=== PATIENT | male | born 1985 | race American Indian/Alaskan Native ===

== ENCOUNTER 2016-09-23 17:22 | Emergency (ER) | payer SELFPAY ==
[2016-09-23] MEDS: DELTASONE PO ONE (21:20)
[2016-09-23] MEDS: MOTRIN PO ONE (21:21)
--- NOTE | 2016-09-23 21:40 | Emergency Department Report ---
ED Lower Extremity HPI - General Chief Complaint: Extremity Injury, Lower Stated Complaint: GOUT SYMPTOMS Time Seen by Provider: 09/23/16 20:39 Source: patient Mode of arrival: Ambulatory Limitations: Physical Limitation - History of Present Illness Initial Comments: left ankle pain and swelling x 3 days pt endorsing twisting injury however pain mimic previous gout attacks same location intensity and duration, pain is exacerbated by weight bearing palpation and movement, pain intially 09/29 on monday now 07/30 which mimics usual gout exacerbation MD Complaint: ankle injury Onset/Timin -: days(s) Injury: Ankle: Right (pain and swelling ) Place: home Severity: moderate Severity scale (0 -10): 6 Improves With: nothing Worsens With: weight bearing, movement, palpation Context: other (twising / gout ) Associated Symptoms: swelling - Related Data Previous Rx's Medication Instructions Recorded Last Taken Type Guaifenesin/Codeine Phosphate 118 ml PO TID #1 bottle 07/26/14 Unknown Rx [guaiFENesin-Codeine Syrup] Indomethacin [Indocin] 25 mg PO Q8H #30 capsule 09/23/16 Unknown Rx predniSONE [Deltasone] 40 mg PO QDAY #5 tab 09/23/16 Unknown Rx Allergies Allergy/AdvReac Type Severity Reaction Status Date / Time No Known Allergies Allergy Unverified 07/26/14 15:34 ED Review of Systems ROS: Stated complaint: GOUT SYMPTOMS Other details as noted in HPI Constitutional: denies: chills, fever Eyes: denies: eye pain, eye discharge, vision change ENT: denies: ear pain, throat pain Respiratory: denies: cough, shortness of breath, wheezing Cardiovascular: denies: chest pain, palpitations Endocrine: no symptoms reported Gastrointestinal: denies: abdominal pain, nausea, diarrhea Genitourinary: denies: urgency, dysuria Musculoskeletal: joint swelling, myalgia Skin: denies: rash, lesions Neurological: denies: headache, weakness, paresthesias Psychiatric: denies: anxiety, depression Hematological/Lymphatic: denies: easy bleeding, easy bruising ED Past Medical Hx - Past Medical History Previous Medical History?: Yes Additional medical history: gout - Surgical History Past Surgical History?: No - Social History Smoking Status: Current Every Day Smoker Substance Use Type: Alcohol - Medications Home Medications: Home Medications Medication Instructions Recorded Confirmed Last Taken Type Guaifenesin/Codeine Phosphate 118 ml PO TID #1 bottle 07/26/14 Unknown Rx [guaiFENesin-Codeine Syrup] Indomethacin [Indocin] 25 mg PO Q8H #30 capsule 09/23/16 Unknown Rx predniSONE [Deltasone] 40 mg PO QDAY #5 tab 09/23/16 Unknown Rx ED Physical Exam - General Limitations: Physical Limitation General appearance: alert, in no apparent distress - Head Head exam: Present: atraumatic, normocephalic - Eye Eye exam: Present: normal appearance - ENT ENT exam: Present: mucous membranes moist - Neck Neck exam: Present: normal inspection - Respiratory Respiratory exam: Present: normal lung sounds bilaterally. Absent: respiratory distress - Cardiovascular Cardiovascular Exam: Present: regular rate, normal rhythm. Absent: systolic murmur, diastolic murmur, rubs, gallop - GI/Abdominal GI/Abdominal exam: Present: soft, normal bowel sounds - Rectal Rectal exam: Present: deferred - Extremities Exam Extremities exam: Present: tenderness, normal capillary refill, joint swelling. Absent: pedal edema, calf tenderness - Expanded Lower Extremity Exam Left Hip exam: Present: full ROM Upper Leg exam: Present: normal inspection, full ROM Knee exam: Present: normal inspection, full ROM Lower Leg exam: Present: normal inspection, full ROM Ankle exam: Present: tenderness, swelling. Absent: abrasion, laceration, ecchymosis, deformity, crepidus, dislocation, erythema, anterior draw sign Foot/Toe exam: Present: tenderness, swelling. Absent: abrasion, laceration, ecchymosis, deformity, crepidus, dislocation, erythema, amputation, puncture wound, foreign body, calcaneal tenderness, tenderness at base of 5th metatarsal , nail avulsion, subungual hematoma Neuro vascular tendon exam: Present: no vascular compromise. Absent: pulse deficit, abnormal cap refill, motor deficit, sensory deficit, tendon deficit, extremity cold to touch, pallor, abnormal 2-point discrimination, decreased fine /light touch, foot drop, peroneal nerve deficit, significant pain with passive ROM of distal joint Gait: Positive: observed and limited by pain - Back Exam Back exam: Present: normal inspection, full ROM. Absent: CVA tenderness (R), CVA tenderness (L), muscle spasm, paraspinal tenderness, vertebral tenderness - Neurological Exam Neurological exam: Present: alert, oriented X3, CN II-XII intact, normal gait, reflexes normal - Psychiatric Psychiatric exam: Present: normal affect - Skin Skin exam: Present: warm, dry, intact, normal color. Absent: rash ED Course Vital Signs 09/23/16 19:22 Temperature 98.3 F Pulse Rate 87 Respiratory 18 Rate Blood Pressure 134/103 Blood Pressure 134/103 [Right] O2 Sat by Pulse 99 Oximetry ED Lower Extremity MDM - Radiology Data Radiology results: report reviewed no fracture moderate soft tissue swelling - Medical Decision Making gout exacerbation pain improved with prednisone and ibuprofen, ppepb +2 , pt now ambulatory without assistive device plan, indomethacin, prednisone and follow up with [facility] pt vebalized agreement and understanding of same. Critical care attestation.: If time is entered above; I have spent that time in minutes in the direct care of this critically ill patient, excluding procedure time. ED Disposition Clinical Impression: Exacerbation of gout Disposition: DC-01 TO HOME OR SELFCARE Is pt being admited?: No Does the pt Need Aspirin: No Condition: Good Instructions: Acute Gouty Arthritis (ED) Additional Instructions: follow with [facility] as directec, ,take indomethacin with food Prescriptions: Indomethacin [Indocin] 25 mg PO Q8H #30 capsule predniSONE [Deltasone] 40 mg PO QDAY #5 tab Referrals: PRIMARY CARE, [Primary Care Provider] - 3-5 Days Time of Disposition: 21:47
[2016-09-23 22:49] VITALS: BP 140/91
--- NOTE | 2016-09-24 09:10 | XRay Report ---
X-RAY LEFT ANKLE 2 VIEWS: 09/23/16 17:22:00 CLINICAL: Trauma. Pain and swelling. FINDINGS: The ankle mortise is intact. No fracture or dislocation. Moderate medial and lateral soft tissue swelling. Soft tissue air or foreign body. IMPRESSION: Soft tissue injury.
== END 2016-09-23 21:53 | disposition home or self-care (01) ==
LOC: ED 17:22
DX: M10.9 Gout, unspecified (principal); F17.200 Nicotine dependence, unspecified, uncomplicated
CPT/HCPCS: 73600; 99283; J7512

== ENCOUNTER 2016-12-15 19:45 | Inpatient (IN) | payer OTHER ==
[2016-12-15] MEDS ORDERED: NACL 0.9% 1000 ML 1,000 ML ONE (20:19)
[2016-12-15] MEDS ORDERED: DIPRIVAN 10 MG/ML 0 MG/0 ML BOTTLE IV ONE (20:22)
[2016-12-15] MEDS ORDERED: MAGNESIUM SULFATE 2GM/50ML 2 GM/50 ML BAG IV ONE ×2 (20:23→20:33)
[2016-12-15] MEDS ORDERED: DIPRIVAN 10 MG/ML IV ONE ×2 (20:32→21:01)
[2016-12-15] MEDS ORDERED: ECOTRIN PO ONE (20:34)
--- NOTE | 2016-12-15 20:35 | Emergency Department Report ---
ED Chest Pain HPI - General Chief Complaint: Chest Pain Stated Complaint: CHEST PAIN Time Seen by Provider: 12/15/16 20:23 Source: patient Mode of arrival: Ambulatory Limitations: No Limitations - History of Present Illness Initial Comments: 31 y/o male with past medical history of hypertension and gout presents to ER with complaints of palpitations and chest pain 1 day. Patient was at his job doing his regular routine activity when he developed palpitations associated with chest pain. He recalls drinking lots of high caffeine energy drink daily. He has not eaten since morning. When he started experiencing chest pain he stopped working and rested but no change in symptoms. He then came to the ER for evaluation. MD Complaint: chest pain -: Gradual (just prior to arrival) Onset: during exertion (doing his routine work) Pain Location: left chest Pain Radiation: none Severity: moderate Quality: heaviness Consistency: constant Improves With: nothing Worsens With: nothing re: diaphoresis, dyspnea Other Symptoms: palpitations Treatments Prior to Arrival: aspirin (he took 2 baby aspirins this morning. He does that daily) Aspirin use within the Past 7 Days: (1) Yes - Related Data Previous Rx's Medication Instructions Recorded Last Taken Type Codeine Phosphate/Guaifenesin 118 ml PO TID #1 bottle 07/26/14 Unknown Rx [guaiFENesin-Codeine Syrup] Indomethacin [Indocin] 25 mg PO Q8H #30 capsule 09/23/16 Unknown Rx predniSONE [Deltasone] 40 mg PO QDAY #5 tab 09/23/16 Unknown Rx Allergies Allergy/AdvReac Type Severity Reaction Status Date / Time No Known Allergies Allergy Unverified 07/26/14 15:34 Heart Score - HEART Score History: Moderately suspicious EKG: Significant ST-depression Age: < 45 Risk factors: 1-2 risk factors Troponin: < normal limit HEART Score: 4 - Critical Actions Critical Actions: 4-6 pts:12-16.6% risk of adverse cardiac event. Should be admitted ED Review of Systems ROS: Stated complaint: CHEST PAIN Other details as noted in HPI Comment: All other systems reviewed and negative Constitutional: diaphoresis. denies: chills, fever Eyes: denies: eye pain, eye discharge, vision change ENT: denies: ear pain, throat pain, dental pain, hearing loss, epistaxis Respiratory: shortness of breath. denies: see HPI, cough, orthopnea, SOB with exertion, SOB at rest Cardiovascular: as per HPI, chest pain, palpitations. denies: dyspnea on exertion, edema, syncope, paroxysmal nocturnal dyspnea Endocrine: no symptoms reported Gastrointestinal: nausea. denies: abdominal pain, vomiting, diarrhea, constipation, hematemesis, melena Genitourinary: denies: urgency, dysuria, frequency, hematuria, discharge Musculoskeletal: denies: back pain, joint swelling, arthralgia Skin: denies: lesions, change in color, change in hair/nails Neurological: weakness. denies: numbness, paresthesias ED Past Medical Hx - Past Medical History Additional medical history: gout - Social History Smoking Status: Current Every Day Smoker Substance Use Type: Alcohol - Medications Home Medications: Home Medications Medication Instructions Recorded Confirmed Last Taken Type Codeine Phosphate/Guaifenesin 118 ml PO TID #1 bottle 07/26/14 Unknown Rx [guaiFENesin-Codeine Syrup] Indomethacin [Indocin] 25 mg PO Q8H #30 capsule 09/23/16 Unknown Rx predniSONE [Deltasone] 40 mg PO QDAY #5 tab 09/23/16 Unknown Rx ED Physical Exam - General Limitations: No Limitations General appearance: in distress (jgda-[id number]-nwetidnt distress), other (blood pressure 93/50, pulse rate ranged between 150s to 200s) - Head Head exam: Present: atraumatic, normocephalic, normal inspection - Eye Eye exam: Present: normal appearance, PERRL, EOMI. Absent: scleral icterus, conjunctival injection, nystagmus - ENT ENT exam: Present: normal exam, mucous membranes dry, mucous membranes moist - Neck Neck exam: Present: normal inspection, full ROM. Absent: tenderness, meningismus, lymphadenopathy - Respiratory Respiratory exam: Present: normal lung sounds bilaterally. Absent: respiratory distress, wheezes, rales, rhonchi, stridor, chest wall tenderness, accessory muscle use, decreased breath sounds - Cardiovascular Cardiovascular Exam: Present: irregular rhythm, other (ventricular tachycardia, non sustaining, with polymorphic V. tach) - GI/Abdominal GI/Abdominal exam: Present: soft, normal bowel sounds. Absent: distended, tenderness, guarding, rebound, rigid, hyperactive bowel sounds, hypoactive bowel sounds, organomegaly, mass, pulsatile mass, hernia - Rectal Rectal exam: Present: deferred - Extremities Exam Extremities exam: Present: normal inspection, full ROM, normal capillary refill. Absent: tenderness, pedal edema, joint swelling - Back Exam Back exam: Present: normal inspection, full ROM. Absent: tenderness, CVA tenderness (L), muscle spasm, paraspinal tenderness - Neurological Exam Neurological exam: Present: alert, oriented X3, CN II-XII intact, motor sensory deficit ED Course Vital Signs 12/15/16 12/15/16 12/15/16 20:00 20:05 21:30 Temperature 98 F 98.5 F 98.5 F Pulse Rate 62 189 H 86 Respiratory 26 H 22 18 Rate Blood Pressure Blood Pressure 92/51 115/56 [Left] O2 Sat by Pulse 100 99 99 Oximetry 12/15/16 12/15/16 12/15/16 21:45 21:48 22:00 Temperature 98.7 F Pulse Rate 84 85 83 Respiratory 18 16 18 Rate Blood Pressure 115/56 Blood Pressure 103/65 115/58 [Left] O2 Sat by Pulse 99 100 100 Oximetry - Reevaluation(s) Reevaluation #1: 12/15/16 21:13 Patient was given propofol 100 mg IV and then cardioverted 200 J. Synchronized cardioversion. Ther was return to sinus rhythm. - Consultations Consultation #1: 12/15/16 22:29 I discussed hospitalist, she advises I speak to chairman & chief executive officer and then call her back Consultation #2: 12/15/16 22:[address]A Mackay, chairman & chief executive officer, he agrees with my management, he advised I admit patient to hospitalist. he will consult on patient. WINIFRED score - Winifred Score Age > 65: (0) No Aspirin use within the Past 7 Days: (1) Yes 3 or more CAD Risk Factors: (0) No 2 or more Angina events in past 24 hrs: (0) No Known CAD with more than 50% Stenosis: (0) No Elevated Cardiac Markers: (0) No ST Deviation Greater than 0.5mm: (0) No WINIFRED Score: 1 ED Medical Decision Making - Lab Data Result diagrams: 12/15/16 20:35 12/15/16 20:35 - EKG Data -: EKG Interpreted by Ia - EKG Data 12/15/16 20:00 Polymorphic tachycardia with rate of 201 beats/ minutes. 20:54 repeat EKG she still shows polymorphic ventricular tachycardia rate of 208 bpm 2112 repeat EKG done after synchronized cardioversion shows return of sinus rhythm rate of 91 beats per minutes with WPW , left toward axis ST depressions in lead [address] changes in lead 3 and aVF tall T waves in V2. 12/15/16 22:27 Critical Care Time: Yes Critical care attestation.: If time is entered above; I have spent that time in minutes in the direct care of this critically ill patient, excluding procedure time. 60 mins Critical Care Time: 60 mins ED Disposition Clinical Impression: Ventricular tachycardia, Xjysv-Ubyedwjsm-Foyob syndrome Disposition: -09 OP ADMIT IP TO THIS HOSP Is pt being admited?: Yes Does the pt Need Aspirin: Yes Condition: Critical Referrals: PRIMARY CARE, [Primary Care Provider] - 3-5 Days Time of Disposition: 22:41
[2016-12-15 20:53] LABS: Basophils % (Auto) 1.1 % (0.0-1.8); Hematocrit 41.7 % (35.5-45.6); Mean Corpuscular HGB Conc 34 % (32-34); Mean Corpuscular Hemoglobin 30 pg (28-32); Mean Corpuscular Volume 88 fl (84-94); Platelet Count 252 K/mm3 (140-440); Red Blood Count 4.74 M/mm3 (3.65-5.03); Red Cell Distribution Width 13.3 % (13.2-15.2); White Blood Count 10.1 K/mm3 (4.5-11.0)
[2016-12-15] MEDS ORDERED: CALCIUM GLUCONATE 1,000 MG in NACL 0.9% 100 ML IV ONE (20:53)
[2016-12-15] MEDS ORDERED: CARDIZEM IV ONE (20:54)
[2016-12-15] MEDS ORDERED: HEPARIN 10,000 UNITS/10 ML IV ONE (20:55)
[2016-12-15 21:09] LABS: Anion Gap 20 mmol/L; BUN/Creatinine Ratio 18; Blood Urea Nitrogen 21 mg/dL (9-20); Calcium 8.7 mg/dL (8.4-10.2); Carbon Dioxide 22 mmol/L (22-30); Chloride 105.6 mmol/L (98-107); Glucose 74 mg/dL (75-100); Potassium 3.7 mmol/L (3.6-5.0); Sodium 144 mmol/L (137-145)
[2016-12-15] MEDS: CORDARONE 900 MG in D5W 482 ML IV SCH (22:26)
[2016-12-15] MEDS ORDERED: MILK OF MAGNESIA PO PRN (22:51)
[2016-12-15] MEDS ORDERED: DULCOLAX PR PRN (22:51)
[2016-12-15] MEDS ORDERED: PERCOCET 5/325 PO PRN (22:51)
[2016-12-15] MEDS ORDERED: ZOFRAN IV PRN (22:51)
[2016-12-15] MEDS ORDERED: TYLENOL PO PRN (22:51)
--- NOTE | 2016-12-15 22:55 | History and Physical Report ---
History of Present Illness Date of examination: 12/15/16 History of present illness: 31-year-old man with no medical problems came to emergency room because of palpitation for 1 hour, he also experienced diaphoresis and felt dizzy. He was found to be in V. tach and was shocked once at 200 J, subsequent EKG showed WPW. He was started on amiodarone drip and a heparin drip. Patient drank 6 energy drinks a week. He had an episode of palpitation 2 years ago, however he went to urgent care today after his symptoms, they did not find anything acute Review Of Systems: Constitutional: no weight loss Ears, eyes, nose, mouth and throat: no nasal congestion, no nasal discharge, no sinus pressure, blurry vision, diplopia Neck: No neck pain or rigidity. Cardiovascular: no chest pain, orthopnea, palpitations Respiratory: No shortness of breath, cough Gastrointestinal: no abdominal pain, hematochezia Genitourinary : no dysuria, frequency , hematuria Musculoskeletal: no muscle ache Integumentary: no rash, no pruritis Neurological: no parathesias, focal weakness Endocrine: no cold or heat intolerance, no polyuria or polydipsia Hematologic/Lymphatic: no easy bruising, no easy bleeding, no gland swelling Allergic/Immunologic: no urticaria, no angioedema. Medications and Allergies Allergies Allergy/AdvReac Type Severity Reaction Status Date / Time No Known Allergies Allergy Unverified 07/26/14 15:34 Home Medications Medication Instructions Recorded Confirmed Last Taken Type Codeine Phosphate/Guaifenesin 118 ml PO TID #1 bottle 07/26/14 Unknown Rx [guaiFENesin-Codeine Syrup] Indomethacin [Indocin] 25 mg PO Q8H #30 capsule 09/23/16 Unknown Rx predniSONE [Deltasone] 40 mg PO QDAY #5 tab 09/23/16 Unknown Rx Active Meds: Active Medications Amiodarone HCl 900 mg/ (Dextrose) 500 mls @ 33.33 mls/hr IV DIRECT DEVON; 1 MG /MIN PRN Reason: Protocol Last Admin: 12/15/16 22:26 Dose: 1 mg/min, 33.33 mls/hr Heparin Sodium/Sodium Chloride (Heparin/ 0.45% Nacl-25,000 Unit/500 Ml) 25,000 unit in 500 mls @ 20 mls/hr IV TITRATE DEVON; 1,000 UNITS/HR PRN Reason: Protocol Exam - Physical Exam Narrative exam: Gen. appearance: Patient lying in bed in no acute distress HEENT: Normocephalic/atraumatic, pupils equal round reactive to light, extra alkaline movement intact, no scleral icterus, no JVD or thyromegaly or nodule, neck is supple, mucous membrane moist, no erythema or exudate Heart: S1-S2, regular rate and rhythm Lungs: Clear to auscultation bilateral breathing comfortable Abdomen: Positive bowel sounds, nontender, nondistended, no organomegaly Extremities: No edema, cyanosis, clubbing Neuro:: Oriented 3 , cranial nerves II-12 intact, speech, motor intact Skin: No rash, nodules, warm dry - Constitutional Vitals: Temp Pulse Resp BP Pulse Ox 98.7 F 83 18 115/58 100 12/15/16 21:45 12/15/16 22:00 12/15/16 22:00 12/15/16 22:00 12/15/16 22:00 Results - Labs CBC & Chem 7: 12/16/16 04:42 12/16/16 04:42 Labs: Abnormal lab results 12/15/16 12/15/16 Range/Units 20:35 20:35 [place] % (Auto) 11.8 H (0.0-7.3) % [place] # 1.2 H (0.0-0.8) K/mm3 BUN 21 H (9-20) mg/dL Glucose 74 L (75-100) mg/dL Assessment and Plan Assessment New onset WPW Vtac, s/p shock Plan Admit to medicine Continue amiodarone drip, heparin drip Check cardiac enzymes, echo, x-ray, consult cardiology DVT prophylaxis initiated
[2016-12-15] MEDS ORDERED: HEPARIN/ 0.45% NACL-25,000 UNIT/500 ML 25,000 UNIT/500 ML BAG IV SCH (23:00)
[2016-12-15 23:23] LABS: INR 1.01 (0.87-1.13)
[2016-12-15 23:24] LABS: Partial Thromboplastin Time 30.7 Sec. (24.2-36.6)
[2016-12-15 23:30] LABS: Creatine Kinase MB 10.2 ng/mL (0.0-4.0)
[2016-12-16 05:17] LABS: Basophils % (Auto) 0.4 % (0.0-1.8); Eosinophils % (Auto) 3.5 % (0.0-4.3); Hematocrit 40.4 % (35.5-45.6); Hemoglobin 13.6 gm/dl (11.8-15.2); Mean Corpuscular HGB Conc 34 % (32-34); Mean Corpuscular Hemoglobin 30 pg (28-32); Mean Corpuscular Volume 88 fl (84-94); Platelet Count 247 K/mm3 (140-440); Red Blood Count 4.58 M/mm3 (3.65-5.03); Red Cell Distribution Width 13.3 % (13.2-15.2); White Blood Count 9.8 K/mm3 (4.5-11.0)
[2016-12-16] MEDS: CORDARONE 900 MG in D5W 482 ML IV SCH (05:19)
[2016-12-16 05:27] LABS: Anion Gap 15 mmol/L; BUN/Creatinine Ratio 22; Blood Urea Nitrogen 20 mg/dL (9-20); Calcium 8.1 mg/dL (8.4-10.2); Carbon Dioxide 24 mmol/L (22-30); Chloride 107.5 mmol/L (98-107); Glucose 99 mg/dL (75-100); Potassium 3.9 mmol/L (3.6-5.0); Sodium 143 mmol/L (137-145)
[2016-12-16 05:28] LABS: Creatine Kinase MB 12.7 ng/mL (0.0-4.0)
[2016-12-16 09:30] LABS: Urine Drugs of Abuse Note Disclamer
--- NOTE | 2016-12-16 10:23 | XRay Report ---
PORTABLE CHEST INDICATION: Palpitations. COMPARISON: 07/26/2014 FINDINGS: Portable, frontal chest radiographs, 2 images again suggest mild cardiomegaly and slightly prominent bronchovascular markings centrally. Otherwise clear lungs without pleural effusions or CHF. Intact bones. Few extrinsic artifacts. CONCLUSION: Mild cardiomegaly, as described. Thank you for the opportunity to participate in this patient's care.
--- NOTE | 2016-12-16 10:47 | Consultation ---
History of Present Illness Consult date: 12/16/16 Consult reason: tachycardia History of present illness: 31 year old male admitted with palpitations and found to have evidence of afib with pre-excitation. He was shocked with a 200 J shock with return to SR. Patient reports having a similar episode in the past but did not seek medical care at that time. He has no chronic medical problems and takes no meds. Past History Past Medical History: No medical history Past Surgical History: No surgical history Social history: no significant social history Family history: no significant family history Medications and Allergies Allergies Allergy/AdvReac Type Severity Reaction Status Date / Time No Known Allergies Allergy Unverified 07/26/14 15:34 Home Medications Medication Instructions Recorded Confirmed Last Taken Type Aspirin [Adult Low Dose Aspirin EC] 81 mg PO DAILY PRN 12/16/16 12/16/16 10:00 History Indomethacin [Indocin] 25 mg PO Q8H PRN 12/16/16 12/16/16 Unknown History predniSONE [Deltasone] 40 mg PO QDAY PRN 12/16/16 12/16/16 Unknown History Active Meds: Active Medications Acetaminophen (Tylenol) 650 mg PO Q4H PRN PRN Reason: Pain MILD(1-3)/Fever >100.5/MORRIS Bisacodyl (Dulcolax) 10 mg [place] QDAY PRN PRN Reason: Constipation unrelieved by MOM Amiodarone HCl 900 mg/ (Dextrose) 500 mls @ 33.33 mls/hr IV DIRECT DEVON; 1 MG /MIN PRN Reason: Protocol Last Titration: 12/16/16 05:20 Dose: 0.5 mg/min, 16.66 mls/hr Heparin Sodium/Sodium Chloride (Heparin/ 0.45% Nacl-25,000 Unit/500 Ml) 25,000 unit in 500 mls @ 20 mls/hr IV TITRATE DEVON; 1,000 UNITS/HR PRN Reason: Protocol Last Admin: 12/16/16 00:45 Dose: 1,000 units/hr, 20 mls/hr Magnesium Hydroxide (Milk Of Magnesia) 30 ml PO Q4H PRN PRN Reason: Constipation Ondansetron HCl (Zofran) 4 mg IV Q8H PRN PRN Reason: N/V unrelieved by Reglan Oxycodone/Acetaminophen (Percocet 5/325) 1 tab PO Q6H PRN PRN Reason: Pain, Moderate (4-6) Review of Systems All systems: negative Physical Examination Vital Signs Temp Pulse Resp Pulse Ox 98 F 62 26 H 100 12/15/16 20:00 12/15/16 20:00 12/15/16 20:00 12/15/16 20:00 General appearance: no acute distress HEENT: Positive: PERRL Neck: Positive: neck supple Cardiac: Positive: Reg Rate and Rhythm Lungs: Positive: Normal Exam Abdomen: Positive: Soft Extremities: Present: normal Results 12/16/16 04:42 12/16/16 04:42 Cardiac Enzymes 12/16/16 Range/Units 04:42 CK-MB (CK-2) 12.7 H (0.0-4.0) ng/mL Coagulation 12/15/16 Range/Units 23:00 PT 13.8 (12.2-14.9) Sec. INR 1.01 (0.87-1.13) APTT 30.7 (24.2-36.6) Sec. CBC 12/16/16 Range/Units 04:42 WBC 9.8 (4.5-11.0) K/mm3 RBC 4.58 (3.65-5.03) M/mm3 Hgb 13.6 (11.8-15.2) gm/dl Hct 40.4 (35.5-45.6) % Plt Count 247 (140-440) K/mm3 Lymph # 2.7 (1.2-5.4) K/mm3 [place] # 1.2 H (0.0-0.8) K/mm3 Eos # 0.3 (0.0-0.4) K/mm3 Baso # 0.0 (0.0-0.1) K/mm3 Comprehensive Metabolic Panel 12/16/16 Range/Units 04:42 Sodium 143 (137-145) mmol/L Potassium 3.9 (3.6-5.0) mmol/L Chloride 107.5 H (98-107) mmol/L Carbon Dioxide 24 (22-30) mmol/L BUN 20 (9-20) mg/dL Creatinine 0.9 (0.8-1.5) mg/dL Glucose 99 (75-100) mg/dL Calcium 8.1 L (8.4-10.2) mg/dL - EKG Interpretation EKG: sinus rhythm Assessment and Plan Afib with pre-excitation s/p DCCV Obesity Non-specific troponin Recommendations: Start po amiodarone. Amiodarone will be continued until patient gets an ablation as outpatient. Amiodarone was chosen due to concern of failure to follow-up by patient. Suspect non-compliance Discontinue IV heparin Echocardiogram
[2016-12-16] MEDS: CORDARONE PO SCH ×2 (13:00→22:15)
--- NOTE | 2016-12-16 23:15 | Progress Note ---
Assessment and Plan Assessment and plan: ssessment New onset WPW Vtac, s/p shock Plan Admit to medicine Continue amiodarone drip, heparin drip Check cardiac enzymes, echo, x-ray, consult cardiology DVT prophylaxis initiated 31-year-old man with no medical problems came to emergency room because of palpitation for 1 hour, he also experienced diaphoresis and felt dizzy. He was found to be in V. tach and was shocked once at 200 J, subsequent EKG showed WPW. He was started on amiodarone drip and a heparin drip. Patient drank 6 energy drinks a week. He had an episode of palpitation 2 years ago, however he went to urgent care today after his symptoms, they did not find anything acute New onset WPW Vtac, s/p shock History Interval history: patient seen and examined, in no acute distress.except for wanting to eat and abdominal pain. We nil get to aconsiderable good job for us this way. Hospitalist Physical - Constitutional Vitals: Temp Pulse Resp BP Pulse Ox 98.1 F 88 18 149/88 99 12/16/16 19:36 12/16/16 23:11 12/16/16 22:27 12/16/16 19:36 12/16/16 22:27 General appearance: Present: no acute distress, well-nourished, obese - EENT Eyes: Present: PERRL, EOM intact ENT: hearing intact, clear oral mucosa - Neck Neck: Present: supple, normal ROM - Respiratory Respiratory effort: normal Respiratory: bilateral: CTA - Cardiovascular Rhythm: regular - Extremities Extremities: no ischemia Results - Labs CBC & Chem 7: 12/16/16 04:42 12/16/16 04:42 Labs: Laboratory Last Values WBC 9.8 K/mm3 (4.5-11.0) 12/16/16 04:42 RBC 4.58 M/mm3 (3.65-5.03) 12/16/16 04:42 Hgb 13.6 gm/dl (11.8-15.2) 12/16/16 04:42 Hct 40.4 % (35.5-45.6) 12/16/16 04:42 MCV 88 fl (84-94) 12/16/16 04:42 MCH 30 pg (28-32) 12/16/16 04:42 MCHC 34 % (32-34) 12/16/16 04:42 RDW 13.3 % (13.2-15.2) 12/16/16 04:42 Plt Count 247 K/mm3 (140-440) 12/16/16 04:42 Lymph % (Auto) 27.3 % (13.4-35.0) 12/16/16 04:42 [place] % (Auto) 12.0 % (0.0-7.3) H 12/16/16 04:42 Eos % (Auto) 3.5 % (0.0-4.3) 12/16/16 04:42 Baso % (Auto) 0.4 % (0.0-1.8) 12/16/16 04:42 Lymph # 2.7 K/mm3 (1.2-5.4) 12/16/16 04:42 [place] # 1.2 K/mm3 (0.0-0.8) H 12/16/16 04:42 Eos # 0.3 K/mm3 (0.0-0.4) 12/16/16 04:42 Baso # 0.0 K/mm3 (0.0-0.1) 12/16/16 04:42 Seg Neutrophils % 56.8 % (40.0-70.0) 12/16/16 04:42 Seg Neutrophils # 5.6 K/mm3 (1.8-7.7) 12/16/16 04:42 PT 13.8 Sec. (12.2-14.9) 12/15/16 23:00 INR 1.01 (0.87-1.13) 12/15/16 23:00 APTT 30.7 Sec. (24.2-36.6) 12/15/16 23:00 Heparin Anti-Xa Level < 0.10 U.I./ml (0.3-0.7) L 12/16/16 10: Sodium 143 mmol/L (137-145) 12/16/16 04:42 Potassium 3.9 mmol/L (3.6-5.0) 12/16/16 04:42 Chloride 107.5 mmol/L (98-107) H 12/16/16 04:42 Carbon Dioxide 24 mmol/L (22-30) 12/16/16 04:42 Anion Gap 15 mmol/L 12/16/16 04:42 BUN 20 mg/dL (9-20) 12/16/16 04:42 Creatinine 0.9 mg/dL (0.8-1.5) 12/16/16 04:42 Estimated GFR > 60 ml/min 12/16/16 04:42 BUN/Creatinine Ratio 22 % 12/16/16 04:42 Glucose 99 mg/dL (75-100) 12/16/16 04:42 Calcium 8.1 mg/dL (8.4-10.2) L 12/16/16 04:42 Magnesium 1.80 mg/dL (1.7-2.3) 12/15/16 20:40 Total Creatine Kinase 466 units/L (55-170) H 12/16/16 04:42 CK-MB (CK-2) 12.7 ng/mL (0.0-4.0) H 12/16/16 04:42 CK-MB (CK-2) Rel Index 2.7 (0-4) 12/16/16 04:42 Troponin T 0.066 ng/mL (0.00-0.029) H D 12/16/16 04:42 Triglycerides 71 mg/dL (2-149) 12/15/16 22:51 Cholesterol 144 mg/dL (50-199) 12/15/16 22:51 LDL Cholesterol Direct 94 mg/dL (50-130) 12/15/16 22:51 HDL Cholesterol 36 mg/dL (40-59) L 12/15/16 22:51 Cholesterol/HDL Ratio 4.00 % 12/15/16 22:51 Urine Opiates Screen Presumptive negative 12/16/16 09:21 Urine Methadone Screen Presumptive negative 12/16/16 09:21 Ur Barbiturates Screen Presumptive negative 12/16/16 09:21 Ur Phencyclidine Scrn Presumptive negative 12/16/16 09:21 Ur Amphetamines Screen Presumptive negative 12/16/16 09:21 U Benzodiazepines Scrn Presumptive negative 12/16/16 09:21 Urine Cocaine Screen Presumptive negative 12/16/16 09:21 U Marijuana (THC) Screen Presumptive negative 12/16/16 09:21 Drugs of Abuse Note Disclamer 12/16/16 09:21
--- NOTE | 2016-12-16 23:22 | Progress Note ---
Assessment and Plan Assessment and plan: 31-year-old man with no medical problems came to emergency room because of palpitation for 1 hour, he also experienced diaphoresis and felt dizzy. He was found to be in V. tach and was shocked once at 200 J, subsequent EKG showed WPW. He was started on amiodarone drip and a heparin drip. Patient drank 6 energy drinks a week. He had an episode of palpitation 2 years ago, however he went to urgent care today after his symptoms, they did not find anything acute Afib with RVR Morbid obesity BMI OF 43.5 vTAC With shock Near syncope Plan Supportive care weight loss managment outpatient Ok with PO amiodarone and patient can be planned for amiodarone. DVT/GI porphy History Interval history: patient seen and examined, in no acute distress.except for wanting to eat and abdominal pain. We nil get to aconsiderable good job for us this way. Hospitalist Physical - Constitutional Vitals: Temp Pulse Resp BP Pulse Ox 98.1 F 88 18 149/88 99 12/16/16 19:36 12/16/16 23:11 12/16/16 22:27 12/16/16 19:36 12/16/16 22:27 General appearance: Present: no acute distress, well-nourished, obese - EENT Eyes: Present: PERRL, EOM intact ENT: hearing intact, clear oral mucosa - Neck Neck: Present: supple, normal ROM - Respiratory Respiratory effort: normal Respiratory: bilateral: CTA - Cardiovascular Rhythm: regular Heart Sounds: Present: S1 & S2. Absent: systolic murmur - Extremities Extremities: no ischemia, pulses intact, No edema Peripheral Pulses: within normal limits - Abdominal General gastrointestinal: soft, non-tender, non-distended, normal bowel sounds - Integumentary Integumentary: Present: clear, warm, dry - Psychiatric Psychiatric: appropriate mood/affect, intact judgment & insight, cooperative - Neurologic Neurologic: CNII-XII intact, moves all extremities - Allied Health Allied health notes reviewed: nursing Results - Labs CBC & Chem 7: 12/16/16 04:42 12/16/16 04:42 Labs: Laboratory Last Values WBC 9.8 K/mm3 (4.5-11.0) 12/16/16 04:42 RBC 4.58 M/mm3 (3.65-5.03) 12/16/16 04:42 Hgb 13.6 gm/dl (11.8-15.2) 12/16/16 04:42 Hct 40.4 % (35.5-45.6) 12/16/16 04:42 MCV 88 fl (84-94) 12/16/16 04:42 MCH 30 pg (28-32) 12/16/16 04:42 MCHC 34 % (32-34) 12/16/16 04:42 RDW 13.3 % (13.2-15.2) 12/16/16 04:42 Plt Count 247 K/mm3 (140-440) 12/16/16 04:42 Lymph % (Auto) 27.3 % (13.4-35.0) 12/16/16 04:42 [place] % (Auto) 12.0 % (0.0-7.3) H 12/16/16 04:42 Eos % (Auto) 3.5 % (0.0-4.3) 12/16/16 04:42 Baso % (Auto) 0.4 % (0.0-1.8) 12/16/16 04:42 Lymph # 2.7 K/mm3 (1.2-5.4) 12/16/16 04:42 [place] # 1.2 K/mm3 (0.0-0.8) H 12/16/16 04:42 Eos # 0.3 K/mm3 (0.0-0.4) 12/16/16 04:42 Baso # 0.0 K/mm3 (0.0-0.1) 12/16/16 04:42 Seg Neutrophils % 56.8 % (40.0-70.0) 12/16/16 04:42 Seg Neutrophils # 5.6 K/mm3 (1.8-7.7) 12/16/16 04:42 PT 13.8 Sec. (12.2-14.9) 12/15/16 23:00 INR 1.01 (0.87-1.13) 12/15/16 23:00 APTT 30.7 Sec. (24.2-36.6) 12/15/16 23:00 Heparin Anti-Xa Level < 0.10 U.I./ml (0.3-0.7) L 12/16/16 10: Sodium 143 mmol/L (137-145) 12/16/16 04:42 Potassium 3.9 mmol/L (3.6-5.0) 12/16/16 04:42 Chloride 107.5 mmol/L (98-107) H 12/16/16 04:42 Carbon Dioxide 24 mmol/L (22-30) 12/16/16 04:42 Anion Gap 15 mmol/L 12/16/16 04:42 BUN 20 mg/dL (9-20) 12/16/16 04:42 Creatinine 0.9 mg/dL (0.8-1.5) 12/16/16 04:42 Estimated GFR > 60 ml/min 12/16/16 04:42 BUN/Creatinine Ratio 22 % 12/16/16 04:42 Glucose 99 mg/dL (75-100) 12/16/16 04:42 Calcium 8.1 mg/dL (8.4-10.2) L 12/16/16 04:42 Magnesium 1.80 mg/dL (1.7-2.3) 12/15/16 20:40 Total Creatine Kinase 466 units/L (55-170) H 12/16/16 04:42 CK-MB (CK-2) 12.7 ng/mL (0.0-4.0) H 12/16/16 04:42 CK-MB (CK-2) Rel Index 2.7 (0-4) 12/16/16 04:42 Troponin T 0.066 ng/mL (0.00-0.029) H D 12/16/16 04:42 Triglycerides 71 mg/dL (2-149) 12/15/16 22:51 Cholesterol 144 mg/dL (50-199) 12/15/16 22:51 LDL Cholesterol Direct 94 mg/dL (50-130) 12/15/16 22:51 HDL Cholesterol 36 mg/dL (40-59) L 12/15/16 22:51 Cholesterol/HDL Ratio 4.00 % 12/15/16 22:51 Urine Opiates Screen Presumptive negative 12/16/16 09:21 Urine Methadone Screen Presumptive negative 12/16/16 09:21 Ur Barbiturates Screen Presumptive negative 12/16/16 09:21 Ur Phencyclidine Scrn Presumptive negative 12/16/16 09:21 Ur Amphetamines Screen Presumptive negative 12/16/16 09:21 U Benzodiazepines Scrn Presumptive negative 12/16/16 09:21 Urine Cocaine Screen Presumptive negative 12/16/16 09:21 U Marijuana (THC) Screen Presumptive negative 12/16/16 09:21 Drugs of Abuse Note Disclamer 12/16/16 09:21
[2016-12-17 05:44] LABS: Hematocrit 40.5 % (35.5-45.6); Hemoglobin 12.9 gm/dl (11.8-15.2)
--- NOTE | 2016-12-17 09:24 | Progress Note ---
Assessment and Plan Afib with pre-excitation s/p DCCV Obesity Non-specific troponin Recommendations: Continue po amiodarone 400 mg po bid x 10 days then 200 mg po daily Start asa 325 mg po daily (CHADSVASC = 0 - no need for anticoagulation) Patient has a follow-up appointment with Dr Mackay (EP) on Monday12/20/2016 at 9:30 am in [place] office May go home cardiac flores Subjective Date of service: 12/17/16 Principal diagnosis: WPW Interval history: Patient is doing well No complaints No further arrhythmias on tele Objective Vital Signs Temp Pulse Resp BP BP Pulse Ox 12/17/16 09:12 97.7 F 76 149/88 12/17/16 08:39 74 98 12/17/16 07:59 73 12/17/16 03:38 98.2 F 74 18 130/55 98 12/17/16 00:02 98.1 F 67 18 149/87 98 12/16/16 23:11 88 12/16/16 22:27 87 18 99 12/16/16 19:36 98.1 F 84 18 149/88 99 12/16/16 15:44 98.0 F 83 18 152/89 100 12/16/16 14:12 99 12/16/16 13:59 98.0 F 76 20 152/89 99 12/16/16 13:30 73 26 H 138/91 99 12/16/16 13:21 89 13 130/75 99 12/16/16 13:11 87 17 130/75 100 12/16/16 13:01 63 19 137/72 99 12/16/16 12:51 66 16 130/75 100 12/16/16 12:41 55 L 19 130/75 100 12/16/16 12:31 58 L 19 130/75 100 12/16/16 12:21 70 18 138/93 99 12/16/16 12:11 66 19 138/93 99 12/16/16 12:00 57 L 15 138/93 99 12/16/16 11:57 97.9 F 63 18 122/68 100 12/16/16 11:51 67 18 122/68 100 12/16/16 11:41 58 L 22 122/68 100 12/16/16 11:31 83 19 122/68 100 12/16/16 11:21 68 18 145/79 98 10/27/17 11:11 68 22 145/79 98 12/16/16 11:01 62 15 145/79 99 12/16/16 10:51 67 24 135/76 99 12/16/16 10:41 78 12 135/76 100 12/16/16 10:31 68 13 135/76 99 12/16/16 10:21 73 15 131/77 99 12/16/16 10:11 71 16 131/77 100 12/16/16 10:01 65 19 131/77 100 12/16/16 09:51 64 20 134/78 100 12/16/16 09:41 80 12 134/78 100 12/16/16 09:31 66 23 134/78 100 - Physical Examination HEENT: Positive: PERRL Neck: Positive: neck supple Cardiac: Positive: Reg Rate and Rhythm Lungs: Positive: Normal Exam Abdomen: Positive: Soft Extremities: Present: normal - Labs and Meds CBC 12/17/16 Range/Units 05:06 Hgb 12.9 (11.8-15.2) gm/dl Hct 40.5 (35.5-45.6) % Plt Count 235 (140-440) K/mm3
[2016-12-17] MEDS: CORDARONE PO SCH (09:53)
[2016-12-17] MEDS ORDERED: ASPIRIN PO SCH (10:00)
--- NOTE | 2016-12-17 11:21 | Discharge Summary ---
Providers - Providers Date of Admission: 12/15/16 22:51 Date of discharge: 12/17/16 Attending physician: BELTRAN FLORES Primary care physician: MAIL CENSOR Hospitalization Condition: Stable Hospital course: Patient is a 31-year-old man with no medical problems who present to ED with palpitation and dizziness. He was found to be in V. tach and was shocked once at 200 J, subsequent EKG showed WPW. He was started on amiodarone drip and a heparin drip. He drinks 6 energy sodas a week. Discharge diagnoses: -Afib with RVR pre-excitation s/p DCCV -Morbid obesity BMI OF 43.5 -vTAC With shock -Near syncope -WPW -non-specific troponin elevation per Cardiology Inventory Assistant, Dr. Guthrie's Recommendations (whom I spoke with): Continue po amiodarone 400 mg po bid x 10 days then 200 mg po daily Start asa 325 mg po daily (CHADSVASC = 0 - no need for anticoagulation) Patient has a follow-up appointment with Dr Mackay () on Monday12/20/2016 at 9:30 am in [place] office May go home cardiac flores Disposition: DC-01 TO HOME OR SELFCARE Time spent for discharge: 32 min Core Measure Documentation - Palliative Care Palliative Care/ Comfort Measures: Not Applicable - Core Measures Any of the following diagnoses?: none - VTE Discharge Requirements Deep Vein Thrombosis/Pulmonary Embolism Present on Admission: No Has pt received <5 days of overlap therapy or INR<2.0: No Anticoagulant overlap therapy prescribed at discharge: No Contraindication No Overlap Therapy order at DC: Not Indicated Exam - Physical Exam Narrative exam: GEN: WDWN, NAD, AWAKE, ALERT, ORIENTATED 3 HEENT: NCAT, EOMI, PERRL, OP Clear NECK: supple, no adenopathy, no thyromegaly, no JVD CVS/HEART: RRR, NORMAL S1S2, NO JVD, pulses present bilaterally CHEST/LUNGS: CTA B, Symmetrical chest expansion, good air entry bilaterally GI/Abdomen: soft, NTND, good bowel sounds, no guarding or rebound /Bladder: no suprapubic tenderness, no CVA or paraspinal tenderness EXT/Skin: no c/c/e, no obvious rash MSK: FROM x 4 Neuro: CN 2-12 grossly intact, no new focal deficits Psych: calm - Constitutional Vitals: Temp Pulse Resp BP Pulse Ox 97.7 F 76 18 149/88 98 12/17/16 09:12 12/17/16 09:12 12/17/16 03:38 12/17/16 09:12 12/17/16 08:39 Plan Activity: no driving until cleared by PCP (no driving until cleared by cardiology), other (no strenous activity until cleared by cardiology) Diet: low salt Special Instructions: smoking cessation Additional Instructions: If you do not have PCP, call [facility] at [phone] for the first available appointment Follow up with: PRIMARY MD SVETLANA [Primary Care Provider] - 3-5 Days JEANETTE MACKAY MD [Staff Physician] - 12/20/16 9:30 am Prescriptions: Amiodarone [Cordarone 200 MG TAB] 400 mg PO BID #30 day Aspirin [Aspirin TAB] 325 mg PO QDAY #30 tablet Nicotine [Habitrol] 14 mg TD DAILY #15 day
[2016-12-17 12:55] VITALS: BP 135/86
== END 2016-12-17 14:12 | disposition home or self-care (01) | DRG 309 ==
LOC: ED 19:45 → CC1 22:51 → 4A 12-16 12:58
PROVIDERS: ADMIT Internal Medicine; ATTEND Internal Medicine
PROC: 5A09357 Assistance with Respiratory Ventilation, Less than 24 Consecutive Hours, Continuous Positive Airway Pressure (ICD-10-PCS; principal; 2016-12-15)
DX: I48.91 Unspecified atrial fibrillation (principal); Z68.41 Body mass index [BMI] 40.0-44.9, adult; I45.6 Pre-excitation syndrome; I47.2 Ventricular tachycardia; E66.01 Morbid (severe) obesity due to excess calories; Z88.5 Allergy status to narcotic agent; Z79.899 Other long term (current) drug therapy
CPT/HCPCS: 36415; 71010; 80048; 80061; 80307; 82550; 82553; 83735; 84484; 85014; 85018; 85025; 85049; 85520; 85610; 85730; 93005; 93010; 93306; 94660; 96365; 96366; 96367; 96375; J0282; J1644; J2704; J3475; J7030; J7060

== ENCOUNTER 2018-04-20 17:45 | Emergency (ER) | payer OTHER ==
--- NOTE | 2018-04-20 18:24 | Emergency Department Report ---
Blank Doc - Documentation Documentation: pt presents with pmh of hemorrhoiuds cc of rectal pain, states x 4 days and wor sening no relief with otc med, denies abd pain BM hurts, no constipation This initial assessment diagnostic orders/clinical plan/treatment (s) is/Are subject change based on patient's health status, clinical progression and re- assessment by fellow clinical providers in the ED. Further treatment and work-up at subsequent clinical providers discretion. Patient/guardians urged not to elope from their condition may be serious if not clinically assessed and managed. Initial order include: Acc eval
--- NOTE | 2018-04-20 21:26 | Emergency Department Report ---
ED Male HPI - General Chief complaint: Rectal Pain Stated complaint: HEMORRHOIDS Time Seen by Provider: 04/20/18 18:17 Source: patient Mode of arrival: Ambulatory Limitations: No Limitations - History of Present Illness Initial comments: 32-year-old -[place] male who is obese comes in for hemorrhoids. Patient states that it has flared up since Monday. Patient does admit to a history of hemorrhoids and has tried using hibr-eoc-pmprssd medication without much relief. Patient denies any blood in stool no fever no chills no abdominal pain pain with defecation but having normal bowel movements. Patient has a past medical history of WPW, gout and hemorrhoids. MD Complaint: other (Rectal pain) -: days(s) (3) Radiation: none Severity scale (0 -10): 10 Quality: sharp Consistency: intermittent Improves with: none Worsens with: bowel movement denies other symptoms - Related Data Previous Rx's Medication Instructions Recorded Last Taken Type Acetaminophen [Acetaminophen TAB] 325 mg PO Q4H PRN #30 tablet 12/17/16 Unknown Rx Amiodarone [Cordarone 200 MG TAB] 400 mg PO BID #30 day 12/17/16 Unknown Rx Aspirin [Aspirin TAB] 325 mg PO QDAY #30 tablet 12/17/16 Unknown Rx Nicotine [Habitrol] 14 mg TD DAILY #15 day 12/17/16 Unknown Rx Hydrocortisone [Anusol-Hc] 30 gm RC TID PRN #1 box 04/20/18 Unknown Rx Allergies Allergy/AdvReac Type Severity Reaction Status Date / Time No Known Allergies Allergy Unverified 07/26/14 15:34 ED Review of Systems ROS: Stated complaint: HEMORRHOIDS Other details as noted in HPI Comment: All other systems reviewed and negative ED Past Medical Hx - Past Medical History Previous Medical History?: Yes Hx HIV: No Additional medical history: Gout, WPW - Surgical History Past Surgical History?: No - Social History Smoking Status: Current Every Day Smoker Substance Use Type: Alcohol, Marijuana - Medications Home Medications: Home Medications Medication Instructions Recorded Confirmed Last Taken Type Acetaminophen [Acetaminophen TAB] 325 mg PO Q4H PRN #30 tablet 12/17/16 Unknown Rx Amiodarone [Cordarone 200 MG TAB] 400 mg PO BID #30 day 12/17/16 Unknown Rx Aspirin [Aspirin TAB] 325 mg PO QDAY #30 tablet 12/17/16 Unknown Rx Nicotine [Habitrol] 14 mg TD DAILY #15 day 12/17/16 Unknown Rx Hydrocortisone [Anusol-Hc] 30 gm RC TID PRN #1 box 04/20/18 Unknown Rx ED Physical Exam - General Limitations: No Limitations General appearance: alert, in no apparent distress - Head Head exam: Present: atraumatic, normocephalic - Eye Eye exam: Present: normal appearance - ENT ENT exam: Present: mucous membranes moist - Rectal Rectal exam: Absent: hemorrhoids - Back Exam Back exam: Present: normal inspection - Neurological Exam Neurological exam: Present: alert, oriented X3 - Psychiatric Psychiatric exam: Present: normal affect, normal mood - Skin Skin exam: Present: warm, dry, intact, normal color. Absent: rash ED Course Vital Signs 04/20/18 18:17 Temperature 98.5 F Pulse Rate 83 Respiratory 18 Rate Blood Pressure 147/82 O2 Sat by Pulse 98 Oximetry ED Medical Decision Making - Medical Decision Making Prescription for Anusol and referral to a director of food and beverage services. Critical care attestation.: If time is entered above; I have spent that time in minutes in the direct care of this critically ill patient, excluding procedure time. ED Disposition Clinical Impression: Hemorrhoids Qualifiers: Hemorrhoid type: unspecified Qualified Code(s): K64.9 - Unspecified hemorrhoids Disposition: - TO HOME OR SELFCARE Is pt being admited?: No Does the pt Need Aspirin: No Condition: Stable Instructions: Hemorrhoids (ED), Hydrocortisone (Rectal) Additional Instructions: Please use medication as prescribed. Follow-up with the director of food and beverage services I have listed one below for your convenience. Prescriptions: Hydrocortisone [Anusol-Hc] 30 gm RC TID PRN #1 box PRN Reason: Hemorrhoids Referrals: [facility] [Provider Group] - 3-5 Days
== END 2018-04-20 21:38 | disposition home or self-care (01) ==
LOC: ED 17:45
CPT/HCPCS: 99282